=== PATIENT | female | born 1990 ===

== ENCOUNTER 2020-12-21 15:34 | Inpatient (IN) | payer OTHER ==
[~2020-12-21 15:34] MED LIST: Iopamidol-370 76% 500 ML 1 ML ONE
[2020-12-21] MEDS ORDERED: Fentanyl 100 MCG/2 ML VIAL ONE (15:43)
[2020-12-21] MEDS ORDERED: Boostrix 0.5 ML (Tdap) VIAL ONE (15:50)
[2020-12-21 15:56] LABS: Hemoglobin 14.4 g/dL (12.0-16.0); Mean Corpuscular HGB CONC 33.4 g/dL (32.0-36.0); Mean Corpuscular Hemoglobin 32.5 pg (27.0-31.0); Mean Corpuscular Volume 97.2 fL (78.0-98.0); Mean Platelet Volume 9.9 fL (7.4-10.4); Platelet Count 219 thou/uL (130-400); RBC Distribution Width 12.1 % (11.5-14.5); Red Blood Cell (RBC) Count 4.43 mill/uL (4.20-5.40); White Blood Cell (WBC) Count 20.1 thou/uL (4.8-10.8)
[2020-12-21] MEDS ORDERED: Fentanyl CADD 100 ML IV SCH (16:00)
[2020-12-21 16:08] LABS: ALT (SGPT) 32 U/L (8-55); AST (SGOT) 92 U/L (5-34); Albumin 4.3 g/dL (3.5-5.0); Alkaline Phosphatase 102 U/L (40-110); Anion Gap 18 mmol/L (10-20); BUN (Urea Nitrogen) 10 mg/dL (7.0-18.7); Bilirubin, Total 0.3 mg/dL (0.2-1.2); Calc. Creatinine Clearance 0 mL/min (70-130); Calcium 8.6 mg/dL (7.8-10.44); Carbon Dioxide 19 mmol/L (22-29); Chloride 103 mmol/L (98-107); Globulin 2.9 g/dL (2.4-3.5); INR-International Normal Ratio 1.1; Potassium 3.7 mmol/L (3.5-5.1); Protein, Total 7.2 g/dL (6.0-8.3); Prothrombin Time 14.7 sec (12.0-14.7); Sodium 136 mmol/L (136-145)
[2020-12-21 16:08] LABS: Bacteria/HPF 4+ HPF (None Seen); Bilirubin Negative (Negative); Blood, Urine 3+ (Negative); Clarity Turbid (Clear); Glucose, Urine (Dipstick) 150 mg/dL (Negative); Ketone, Urine Negative (Negative); Leukocyte Negative Leu/uL (Negative); Nitrite Negative (Negative); Pregnancy Test - Urine (BHCG) Negative (Negative); Pregu Control Background? CLEAR/WHITE (CLR/WHITE); Pregu Control Bar Appear? YES (CONTROL BAR); Protein, Urine (Dipstick) 300 mg/dL (Neg-Trace); RBC/HPF Greater than 50 HPF (0-3); Specific Gravity 1.012 (1.002-1.036); Specific Gravity, Urine 1.012 (1.002-1.036); Urobilinogen Normal mg/dL (Less than 2); WBC/HPF 21-50 HPF (0-3)
[2020-12-21 16:09] LABS: PTT 37.6 sec (22.9-36.1)
[2020-12-21] MEDS ORDERED: manNITOL 20% 500 ML ONE (16:13)
[2020-12-21] MEDS ORDERED: Mannitol 12.5 GM/50 ML ONE (16:13)
[2020-12-21 16:15] LABS: Band 36 % (5-11); Eosinophils 1 % (0-10); Lymphocytes 19 % (21-51); MDiff Complete? YES; Monocytes 2 % (0-10); Neutrophil 39 % (42-75); Platelet Morphology Comment Appears Adequate; RBC Morphology Normal; Reactive Lymphocytes 3 % (0-10)
[2020-12-21 16:18] LABS: Glucose 235 mg/dL (70-105)
[2020-12-21] MEDS ORDERED: Dextrose 50% Abboject 50 ML SYRINGE SLOW IVP PRN (16:22)
[2020-12-21] MEDS ORDERED: Ondansetron PF 4 MG/2 ML Vial IVP PRN (16:22)
[2020-12-21] MEDS ORDERED: Dextrose 5% in Water 1,000 ML IV PRN (16:22)
[2020-12-21 16:23] LABS: Medtox Reader # READER 4
[2020-12-21 16:24] LABS: Amphetamine Not Detected (NotDetected); Barbiturates Screen Not Detected (NotDetected); Benzodiazepine Screen Not Detected (NotDetected); Cocaine Metabolite Screen Not Detected (NotDetected); Medtox Control Line Valid? VALID (VALID); Methadone Not Detected (NotDetected); Methamphetamine Not Detected (NotDetected); Opiate Screen Not Detected (NotDetected); Oxycodone Screen Not Detected (NotDetected); Phencyclidine (PCP) Not Detected (NotDetected); THC/Cannabinoid Screen Detected (NotDetected); Tricyclic Screen Not Detected (NotDetected)
[2020-12-21 16:26] LABS: Actual Bicarbonate (HCO3a) 19.5 mEq/L (22-28); Analyzer IN Cardio ER; Base Excess (BEa) -7.2 mEq/L (-2.0 to +3.0); Calcium, Ionized (arterial) 1.08 mmol/L (1.12-1.30); Carboxyhemoglobin (COHb) 0.6 gm% (0.0-3.0); Hemoglobin (Hb) 11.6 g/dL (12.0-16.0); O2 Tension (PaO2), arterial 139.8 mmHg (80.0-100.0); pH, Arterial 7.27 (7.35-7.45)
[2020-12-21 16:28] LABS: Puncture Site LRA
[2020-12-21] MEDS ORDERED: niCARdipine 25 MG in Sodium Chloride 0.9% 250 ML 250 ML IVPB PRN (16:29)
[2020-12-21] MEDS ORDERED: Labetalol HCl 100 MG/20 ML VIAL SLOW IVP PRN (16:29)
[2020-12-21] MEDS ORDERED: Ventilator Sedation Protocol 1 EACH FS SCH (16:30)
[2020-12-21] MEDS ORDERED: CEFAZOLIN 1 GM VIAL SLOW IVP SCH (16:30)
[2020-12-21 17:09] LABS: Actual Bicarbonate (HCO3a) 18.7 mEq/L (22-28); Analyzer IN Cardio ER; Base Excess (BEa) -6.5 mEq/L (-2.0 to +3.0); CO2 Tension 35.7 mmHg (35.0-45.0); Calcium, Ionized (arterial) 1.05 mmol/L (1.12-1.30); Hemoglobin (Hb) 11.3 g/dL (12.0-16.0); O2 Tension (PaO2), arterial 76.3 mmHg (80.0-100.0); Potassium - ABG Lab 3.14 mmol/L (3.70-5.30); pH, Arterial 7.34 (7.35-7.45)
[2020-12-21 17:12] LABS: ALV-art Gradient 378.175 mmHg (0-20); Puncture Site Arterial Line
[2020-12-21] MEDS ORDERED: levETIRAcetam in NS 100 ML ONE (17:23)
[2020-12-21] MEDS ORDERED: Morphine 2 MG/ML VIAL SLOW IVP PRN (17:30)
[2020-12-21] MEDS ORDERED: Pharmacy to Dose UNASYN IVPB PRN (17:30)
[2020-12-21] MEDS ORDERED: DISCONTINUE PREVIOUS NARCOTIC PAIN MEDICATIONS AND BENZODIAZEPINES FS SCH (17:30)
[2020-12-21] MEDS ORDERED: Fentanyl BOLUS 250 ML IVPB PRN (17:30)
[2020-12-21] MEDS ORDERED: Propofol BOLUS 1,000 MG/100 ML VIAL IV PRN (17:30)
[2020-12-21] MEDS ORDERED: Norepinephrine 8 MG/0.9% NS 250 ML ONE (17:32)
[2020-12-21] MEDS ORDERED: Ampicillin/Sulbactam 1.5 GM in Sodium Chloride 0.9% 100 ML IVPB SCH (18:00)
[2020-12-21] MEDS ORDERED: Ampicillin/Sulbactam 3 GM in Sodium Chloride 0.9% 100 ML IVPB SCH ×2 (18:00→22:00)
[2020-12-21 18:30] LABS: Sodium 137 mmol/L (136-145)
[2020-12-21] MEDS: Lactated Ringer's 1,000 ML IV SCH (19:00)
[2020-12-21 19:11] LABS: SARS-CoV-2 NAA Rapid Test Not Detected (NotDetected)
[2020-12-21] MEDS: Propofol 1,000 MG/100 ML VIAL IV PRN (20:00)
[2020-12-21] MEDS: Famotidine/PF 20 mg/2ml Vial SLOW IVP SCH (21:01)
[2020-12-21] MEDS: Ampicillin/Sulbactam 3 GM in Sodium Chloride 0.9% 100 ML IVPB SCH (21:38)
[2020-12-21 21:59] LABS: Band 16 % (5-11); Hemoglobin 11.7 g/dL (12.0-16.0); Lymphocytes 24 % (21-51); MDiff Complete? YES; Mean Corpuscular HGB CONC 34.2 g/dL (32.0-36.0); Mean Corpuscular Hemoglobin 32.5 pg (27.0-31.0); Mean Platelet Volume 9.4 fL (7.4-10.4); Monocytes 1 % (0-10); Neutrophil 59 % (42-75); Platelet Count 199 thou/uL (130-400); RBC Distribution Width 12.2 % (11.5-14.5); Red Blood Cell (RBC) Count 3.61 mill/uL (4.20-5.40); White Blood Cell (WBC) Count 23.4 thou/uL (4.8-10.8)
[2020-12-22] MEDS: Lactated Ringer's 1,000 ML IV SCH ×4 (04:02→22:44)
[2020-12-22] MEDS: Ampicillin/Sulbactam 3 GM in Sodium Chloride 0.9% 100 ML IVPB SCH ×4 (04:03→21:53)
[2020-12-22 04:52] LABS: #Basophils 0.1 thou/uL (0.0-0.2); #Lymphocytes 2.2 thou/uL (1.20-3.40); #Monocytes 1.3 thou/uL (0.11-0.59); #Neutrophils 13.2 thou/uL (1.40-6.50); %Basophils 0.4 % (0.0-1.0); %Lymphocytes 12.9 % (21.0-51.0); %Monocytes 7.6 % (0.0-10.0); %Neutrophils 79.1 % (42.0-75.0); Hemoglobin 10.6 g/dL (12.0-16.0); Mean Corpuscular HGB CONC 34.3 g/dL (32.0-36.0); Mean Corpuscular Hemoglobin 32.4 pg (27.0-31.0); Mean Corpuscular Volume 94.3 fL (78.0-98.0); Mean Platelet Volume 9.8 fL (7.4-10.4); Platelet Count 161 thou/uL (130-400); Red Blood Cell (RBC) Count 3.26 mill/uL (4.20-5.40); White Blood Cell (WBC) Count 16.7 thou/uL (4.8-10.8)
[2020-12-22 05:27] LABS: Anion Gap 13 mmol/L (10-20); BUN (Urea Nitrogen) 11 mg/dL (7.0-18.7); Calc. Creatinine Clearance 98 mL/min (70-130); Carbon Dioxide 19 mmol/L (22-29); Chloride 113 mmol/L (98-107); Glucose 106 mg/dL (70-105); Magnesium 1.4 mg/dL (1.6-2.6); Potassium 3.4 mmol/L (3.5-5.1); Sodium 142 mmol/L (136-145)
[2020-12-22 05:41] LABS: Phosphorus 1.9 mg/dL (2.3-4.7)
[2020-12-22] MEDS ORDERED: Potassium Phosphate 30 MMOL in Sodium Chloride 0.9% 250 ML 250 ML IVPB SCH (06:30)
[2020-12-22] MEDS ORDERED: Magnesium 2 GM/50 ML 2 GM in Premix Bag 1 BAG IVPB SCH (06:30)
[2020-12-22] MEDS ORDERED: Fentanyl CADD 100 ML ONE ×2 (07:13→21:50)
[2020-12-22] MEDS: Fentanyl CADD 100 ML IV SCH ×2 (07:15→21:51)
[2020-12-22] MEDS ORDERED: Sodium Phosphate 30 MMOL in Sodium Chloride 0.9% 250 ML 250 ML IVPB SCH (07:30)
[2020-12-22 07:45] LABS: Actual Bicarbonate (HCO3a) 18.9 mEq/L (22-28); Base Excess (BEa) -2.8 mEq/L (-2.0 to +3.0); Hemoglobin (Hb) 12.8 g/dL (12.0-16.0); O2 Tension (PaO2), arterial 138.4 mmHg (80.0-100.0)
[2020-12-22 07:46] LABS: Calcium, Ionized (arterial) 1.08 mmol/L (1.12-1.30); Potassium - ABG Lab 3.51 mmol/L (3.70-5.30)
[2020-12-22 08:04] LABS: CO2 Tension 24.9 mmHg (35.0-45.0)
[2020-12-22 08:05] LABS: ALV-art Gradient 329.575 mmHg (0-20); Puncture Site Arterial Line
[2020-12-22] MEDS: Famotidine/PF 20 mg/2ml Vial SLOW IVP SCH ×2 (09:04→20:53)
[2020-12-22] MEDS: Potassium Chloride 20 MEQ in Premix Bag 1 BAG IVPB SCH ×2 (09:08→13:18)
[2020-12-22] MEDS: Propofol 1,000 MG/100 ML VIAL IV PRN ×2 (09:22→19:51)
[2020-12-22] MEDS ORDERED: Mannitol 12.5 GM/50 ML SLOW IVP PRN (10:12)
[2020-12-22] MEDS ORDERED: levETIRAcetam in NS 500 MG in Premix Bag 1 BAG IVPB SCH (10:15)
[2020-12-22] MEDS: Norepinephrine 8 MG/0.9% NS 250 ML IVPB PRN (11:45)
[2020-12-22] MEDS ORDERED: Sodium Chloride 0.9% 1,000 ML IV SCH (15:00)
[2020-12-22] MEDS ORDERED: Calcium Chloride 13.6 MEQ in Sodium Chloride 0.9% 100 ML IVPB SCH (16:00)
[2020-12-22] MEDS ORDERED: Hydrocortisone Sod Succ/PF 100 mg/2 ml Vial IVP SCH (19:00)
[2020-12-22] MEDS: Lorazepam 2 MG/ML VIAL SLOW IVP PRN (19:33)
[2020-12-22 20:44] LABS: Actual Bicarbonate (HCO3a) 17.9 mEq/L (22-28); Base Excess (BEa) -7.9 mEq/L (-2.0 to +3.0); CO2 Tension 37.7 mmHg (35.0-45.0); Calcium, Ionized (arterial) 1.14 mmol/L (1.12-1.30); Carboxyhemoglobin (COHb) 0.3 gm% (0.0-3.0); Hemoglobin (Hb) 8.4 g/dL (12.0-16.0); O2 Tension (PaO2), arterial 75.2 mmHg (80.0-100.0); Potassium - ABG Lab 3.97 mmol/L (3.70-5.30)
[2020-12-22 20:47] LABS: Puncture Site Arterial Line
[2020-12-22 20:48] LABS: ALV-art Gradient 341.125 mmHg (0-20)
[2020-12-22] MEDS: levETIRAcetam in NS 500 MG in Premix Bag 1 BAG IVPB SCH (20:53)
[2020-12-22 21:46] LABS: Anion Gap 15 mmol/L (10-20); BUN (Urea Nitrogen) 7 mg/dL (7.0-18.7); Calc. Creatinine Clearance 122 mL/min (70-130); Calcium 7.8 mg/dL (7.8-10.44); Carbon Dioxide 16 mmol/L (22-29); Chloride 117 mmol/L (98-107); Glucose 104 mg/dL (70-105); Potassium 4.1 mmol/L (3.5-5.1); Sodium 144 mmol/L (136-145)
[2020-12-23] MEDS: Norepinephrine 8 MG/0.9% NS 250 ML IVPB PRN ×2 (00:45→19:11)
[2020-12-23] MEDS: Hydrocortisone Sod Succ/PF 100 mg/2 ml Vial IVP SCH ×4 (01:25→20:29)
[2020-12-23] MEDS: Propofol 1,000 MG/100 ML VIAL IV PRN ×5 (01:53→22:06)
[2020-12-23] MEDS: Ampicillin/Sulbactam 3 GM in Sodium Chloride 0.9% 100 ML IVPB SCH ×4 (03:07→22:07)
[2020-12-23] MEDS: Lactated Ringer's 1,000 ML IV SCH ×3 (04:36→16:41)
[2020-12-23 04:59] LABS: White Blood Cell (WBC) Count 21.7 thou/uL (4.8-10.8)
[2020-12-23 05:32] LABS: Hemoglobin 8.2 g/dL (12.0-16.0); Mean Corpuscular HGB CONC 33.3 g/dL (32.0-36.0); Mean Corpuscular Hemoglobin 32.4 pg (27.0-31.0); Mean Corpuscular Volume 97.4 fL (78.0-98.0); Mean Platelet Volume 10.7 fL (7.4-10.4); Platelet Count 142 thou/uL (130-400); RBC Distribution Width 12.4 % (11.5-14.5); Red Blood Cell (RBC) Count 2.53 mill/uL (4.20-5.40)
[2020-12-23 05:44] LABS: Anion Gap 17 mmol/L (10-20); BUN (Urea Nitrogen) 6 mg/dL (7.0-18.7); Calc. Creatinine Clearance 116 mL/min (70-130); Carbon Dioxide 14 mmol/L (22-29); Chloride 117 mmol/L (98-107); Glucose 135 mg/dL (70-105); Magnesium 1.9 mg/dL (1.6-2.6); Phosphorus 3.2 mg/dL (2.3-4.7); Potassium 4.2 mmol/L (3.5-5.1); Sodium 144 mmol/L (136-145)
[2020-12-23 06:04] LABS: Band 10 % (5-11); Lymphocytes 3 % (21-51); MDiff Complete? YES; Monocytes 2 % (0-10); Neutrophil 85 % (42-75)
[2020-12-23 06:44] LABS: Base Excess (BEa) -8.3 mEq/L (-2.0 to +3.0); CO2 Tension 34.1 mmHg (35.0-45.0); Calcium, Ionized (arterial) 1.15 mmol/L (1.12-1.30); Carboxyhemoglobin (COHb) 0.3 gm% (0.0-3.0); Hemoglobin (Hb) 8.4 g/dL (12.0-16.0); O2 Tension (PaO2), arterial 93.7 mmHg (80.0-100.0); Potassium - ABG Lab 4.08 mmol/L (3.70-5.30); pH, Arterial 7.32 (7.35-7.45)
[2020-12-23 06:47] LABS: ALV-art Gradient 362.775 mmHg (0-20); Puncture Site Arterial Line
[2020-12-23 09:13] LABS: Actual Bicarbonate (HCO3a) 17.2 mEq/L (22-28); CO2 Tension 33.9 mmHg (35.0-45.0); Calcium, Ionized (arterial) 1.15 mmol/L (1.12-1.30); Carboxyhemoglobin (COHb) 0.3 gm% (0.0-3.0); Hemoglobin (Hb) 8.3 g/dL (12.0-16.0); Potassium - ABG Lab 4.06 mmol/L (3.70-5.30); pH, Arterial 7.32 (7.35-7.45)
[2020-12-23] MEDS ORDERED: Lidocaine 1% (PF) 30 ML VIAL ONE (09:13)
[2020-12-23 09:14] LABS: ALV-art Gradient 379.725 mmHg (0-20); Puncture Site Arterial Line
[2020-12-23] MEDS ORDERED: Calcium Chloride 1 GM/10 ML Abboject SYRINGE IVP SCH (09:15)
[2020-12-23] MEDS: Famotidine/PF 20 mg/2ml Vial SLOW IVP SCH ×2 (09:57→20:31)
[2020-12-23] MEDS: levETIRAcetam in NS 500 MG in Premix Bag 1 BAG IVPB SCH ×2 (09:58→20:30)
[2020-12-23] MEDS ORDERED: Acetaminophen 650 MG/20.3 ML UDCUP PO PRN (10:39)
[2020-12-23] MEDS: Lorazepam 2 MG/ML VIAL SLOW IVP PRN (10:53)
[2020-12-23] MEDS ORDERED: Fentanyl CADD 100 ML ONE (11:53)
[2020-12-23] MEDS: Fentanyl CADD 100 ML IV SCH (11:55)
[2020-12-23] MEDS ORDERED: Acetaminophen 650 MG/20.3 ML UDCUP PO SCH (12:15)
[2020-12-23 16:34] LABS: Hemoglobin 8.3 g/dL (12.0-16.0); Mean Corpuscular HGB CONC 32.7 g/dL (32.0-36.0); Mean Corpuscular Volume 94.7 fL (78.0-98.0); Mean Platelet Volume 9.7 fL (7.4-10.4); Platelet Count 131 thou/uL (130-400); RBC Distribution Width 12.5 % (11.5-14.5); Red Blood Cell (RBC) Count 2.68 mill/uL (4.20-5.40); White Blood Cell (WBC) Count 26.1 thou/uL (4.8-10.8)
[2020-12-23 16:53] LABS: Band 37 % (5-11); Lymphocytes 4 % (21-51); MDiff Complete? YES; Monocytes 7 % (0-10); Neutrophil 52 % (42-75); Platelet Morphology Comment Appears Adequate; Polychromasia SLIGHT = 2-3 cells (100X) (0-2/hpf)
[2020-12-23] MEDS: Acetaminophen 650 MG/20.3 ML UDCUP PO SCH ×2 (18:14→23:29)
[2020-12-24] MEDS ORDERED: Fentanyl CADD 100 ML ONE (00:25)
[2020-12-24] MEDS: Fentanyl CADD 100 ML IV SCH (00:42)
[2020-12-24] MEDS: Hydrocortisone Sod Succ/PF 100 mg/2 ml Vial IVP SCH ×4 (01:34→20:52)
[2020-12-24] MEDS: Propofol 1,000 MG/100 ML VIAL IV PRN ×2 (03:38→11:57)
[2020-12-24] MEDS: Ampicillin/Sulbactam 3 GM in Sodium Chloride 0.9% 100 ML IVPB SCH ×4 (03:39→21:36)
[2020-12-24] MEDS: Acetaminophen 650 MG/20.3 ML UDCUP PO SCH ×3 (05:33→17:42)
[2020-12-24 05:47] LABS: #Lymphocytes 1.2 thou/uL (1.20-3.40); #Monocytes 0.9 thou/uL (0.11-0.59); #Neutrophils 14.6 thou/uL (1.40-6.50); %Basophils 0.1 % (0.0-1.0); %Eosinophils 0.2 % (0.0-10.0); %Monocytes 5.6 % (0.0-10.0); %Neutrophils 87.1 % (42.0-75.0); Hemoglobin 8.4 g/dL (12.0-16.0); Mean Corpuscular HGB CONC 33.8 g/dL (32.0-36.0); Mean Corpuscular Volume 94.5 fL (78.0-98.0); Mean Platelet Volume 9.8 fL (7.4-10.4); Platelet Count 125 thou/uL (130-400); RBC Distribution Width 13.2 % (11.5-14.5); Red Blood Cell (RBC) Count 2.63 mill/uL (4.20-5.40); White Blood Cell (WBC) Count 16.8 thou/uL (4.8-10.8)
[2020-12-24 06:05] LABS: Anion Gap 10 mmol/L (10-20); BUN (Urea Nitrogen) 6 mg/dL (7.0-18.7); Calc. Creatinine Clearance 138 mL/min (70-130); Calcium 8.3 mg/dL (7.8-10.44); Carbon Dioxide 22 mmol/L (22-29); Chloride 119 mmol/L (98-107); Glucose 189 mg/dL (70-105); Magnesium 1.7 mg/dL (1.6-2.6); Phosphorus 1.6 mg/dL (2.3-4.7); Potassium 3.7 mmol/L (3.5-5.1); Sodium 147 mmol/L (136-145)
[2020-12-24] MEDS ORDERED: Magnesium Sulfate 2 GM in Sodium Chloride 0.9% 100 ML IV SCH (06:30)
[2020-12-24] MEDS ORDERED: Potassium Phosphate 30 MMOL, Magnesium Sulfate 2 GM in Sodium Chloride 0.9% 250 ML 250 ML IVPB SCH (06:30)
[2020-12-24] MEDS: levETIRAcetam in NS 500 MG in Premix Bag 1 BAG IVPB SCH ×2 (08:01→20:56)
[2020-12-24] MEDS: Famotidine/PF 20 mg/2ml Vial SLOW IVP SCH ×2 (08:02→20:52)
[2020-12-24] MEDS ORDERED: Iopamidol-370 76% 500 ML 1 ML ONE ×2 (08:54→08:59)
[2020-12-24 09:23] LABS: Lactic Acid 1.1 mmol/L (0.5-2.2)
[2020-12-24 09:29] LABS: INR-International Normal Ratio 1.1; PTT 27.8 sec (22.9-36.1); Prothrombin Time 14.5 sec (12.0-14.7)
[2020-12-24] MEDS: Ferrous Sulfate 325 MG TAB PO SCH ×2 (10:15→20:52)
[2020-12-24] MEDS: Ascorbic Acid 500 mg Chewable Tablet PO SCH ×2 (10:15→20:52)
[2020-12-24] MEDS ORDERED: Lactated Ringer's 1,000 ML IV SCH ×2 (14:00→14:38)
[2020-12-24] MEDS ORDERED: Potassium Chloride 10 MEQ in Dextrose 5%-Lactated Ringers 1,000 ML IV SCH (14:45)
[2020-12-24] MEDS ORDERED: Dextrose 5% in Water 1,000 ML IV PRN (14:46)
[2020-12-24] MEDS ORDERED: Dextrose 50% Abboject 50 ML SYRINGE SLOW IVP PRN (14:46)
[2020-12-24] MEDS: Metoclopramide HCl 10 MG/2 ML VIAL IVP SCH ×2 (16:34→21:37)
[2020-12-24 17:04] LABS: Anion Gap 11 mmol/L (10-20); BUN (Urea Nitrogen) 6 mg/dL (7.0-18.7); Calc. Creatinine Clearance 175 mL/min (70-130); Calcium 7.4 mg/dL (7.8-10.44); Carbon Dioxide 19 mmol/L (22-29); Chloride 120 mmol/L (98-107); Glucose 124 mg/dL (70-105); Magnesium 2.2 mg/dL (1.6-2.6); Phosphorus 2.8 mg/dL (2.3-4.7); Potassium 3.7 mmol/L (3.5-5.1); Sodium 146 mmol/L (136-145)
[2020-12-24] MEDS: Lactated Ringer's 1,000 ML IV SCH (17:50)
[2020-12-24] MEDS ORDERED: Aspirin 325 MG TAB PER TUBE SCH (22:00)
[2020-12-25] MEDS: Acetaminophen 650 MG/20.3 ML UDCUP PO SCH ×5 (00:14→23:22)
[2020-12-25] MEDS: Hydrocortisone Sod Succ/PF 100 mg/2 ml Vial IVP SCH ×4 (02:00→20:53)
[2020-12-25] MEDS: Lactated Ringer's 1,000 ML IV SCH (02:00)
[2020-12-25 04:12] LABS: #Lymphocytes 1.2 thou/uL (1.20-3.40); #Monocytes 0.9 thou/uL (0.11-0.59); #Neutrophils 12.5 thou/uL (1.40-6.50); %Eosinophils 0.3 % (0.0-10.0); %Lymphocytes 8.2 % (21.0-51.0); %Neutrophils 85.5 % (42.0-75.0); Hemoglobin 8.2 g/dL (12.0-16.0); Mean Corpuscular HGB CONC 34.2 g/dL (32.0-36.0); Mean Corpuscular Hemoglobin 32.6 pg (27.0-31.0); Mean Corpuscular Volume 95.2 fL (78.0-98.0); Mean Platelet Volume 9.6 fL (7.4-10.4); Platelet Count 143 thou/uL (130-400); RBC Distribution Width 13.3 % (11.5-14.5); Red Blood Cell (RBC) Count 2.51 mill/uL (4.20-5.40); White Blood Cell (WBC) Count 14.6 thou/uL (4.8-10.8)
[2020-12-25] MEDS: Ampicillin/Sulbactam 3 GM in Sodium Chloride 0.9% 100 ML IVPB SCH ×4 (04:41→21:04)
[2020-12-25 04:56] LABS: Anion Gap 12 mmol/L (10-20); BUN (Urea Nitrogen) 6 mg/dL (7.0-18.7); Calc. Creatinine Clearance 162 mL/min (70-130); Calcium 8.1 mg/dL (7.8-10.44); Carbon Dioxide 22 mmol/L (22-29); Chloride 117 mmol/L (98-107); Glucose 139 mg/dL (70-105); Magnesium 2.1 mg/dL (1.6-2.6); Phosphorus 2.2 mg/dL (2.3-4.7); Potassium 3.6 mmol/L (3.5-5.1); Sodium 147 mmol/L (136-145)
[2020-12-25] MEDS: Metoclopramide HCl 10 MG/2 ML VIAL IVP SCH ×3 (05:43→21:02)
[2020-12-25] MEDS ORDERED: Potassium Phosphate 30 MMOL in Sodium Chloride 0.9% 500 ML IVPB SCH (07:30)
[2020-12-25] MEDS ORDERED: Dextrose 5%-Lactated Ringers 1,000 ML IV SCH (07:32)
[2020-12-25] MEDS ORDERED: Aspirin 325 MG TAB PER TUBE SCH (08:00)
[2020-12-25] MEDS: Propofol 1,000 MG/100 ML VIAL IV PRN ×2 (08:00→21:00)
[2020-12-25] MEDS ORDERED: Potassium Phosphate 30 MMOL in Sodium Chloride 0.9% 250 ML 250 ML IVPB SCH (08:15)
[2020-12-25] MEDS ORDERED: Fentanyl CADD 100 ML ONE (08:46)
[2020-12-25] MEDS: Fentanyl CADD 100 ML IV SCH (08:53)
[2020-12-25] MEDS: Dextrose 5%-Lactated Ringers 1,000 ML IV SCH ×2 (09:09→12:16)
[2020-12-25] MEDS: Saccharomyces boulardii 250 MG CAP PO SCH (09:28)
[2020-12-25] MEDS: Ascorbic Acid 500 mg Chewable Tablet PO SCH ×2 (09:28→20:53)
[2020-12-25] MEDS: Famotidine/PF 20 mg/2ml Vial SLOW IVP SCH ×2 (09:28→20:54)
[2020-12-25] MEDS: Amantadine HCl 100 mg Capsule PO SCH (09:29)
[2020-12-25] MEDS: Polyethylene Glycol 3350 17 GM Packet PO SCH (09:29)
[2020-12-25] MEDS: Ferrous Sulfate 325 MG TAB PO SCH ×2 (09:29→20:52)
[2020-12-25] MEDS: levETIRAcetam in NS 500 MG in Premix Bag 1 BAG IVPB SCH ×2 (09:39→21:38)
[2020-12-25] MEDS: Levothyroxine Sodium 400 MCG, Admixture Fee 1 EACH in Sodium Chloride 0.9% 100 ML IVPB SCH (09:47)
[2020-12-25] MEDS ORDERED: Levothyroxine 100 MCG SDV SLOW IVP SCH (10:30)
[2020-12-25] MEDS: D5 1/2 NS w/10 mEq KCl 1,000 ML/1,000 ML BAG IV SCH ×2 (12:14→21:39)
[2020-12-25] MEDS: Insulin Regular 300 UNITS/3 ML VIAL SC PRN ×2 (16:37→23:21)
[2020-12-26] MEDS: Hydrocortisone Sod Succ/PF 100 mg/2 ml Vial IVP SCH ×4 (01:38→20:27)
[2020-12-26 04:11] LABS: Lactic Acid 1.8 mmol/L (0.5-2.2)
[2020-12-26 04:19] LABS: Anion Gap 11 mmol/L (10-20); BUN (Urea Nitrogen) 8 mg/dL (7.0-18.7); Calc. Creatinine Clearance 187 mL/min (70-130); Calcium 7.9 mg/dL (7.8-10.44); Carbon Dioxide 22 mmol/L (22-29); Chloride 118 mmol/L (98-107); Glucose 145 mg/dL (70-105); Magnesium 2.2 mg/dL (1.6-2.6); Phosphorus 3.1 mg/dL (2.3-4.7); Potassium 3.9 mmol/L (3.5-5.1); Sodium 147 mmol/L (136-145)
[2020-12-26 04:23] LABS: Band 21 % (5-11); Hemoglobin 7.9 g/dL (12.0-16.0); Lymphocytes 17 % (21-51); MDiff Complete? YES; Mean Corpuscular HGB CONC 34.3 g/dL (32.0-36.0); Mean Corpuscular Hemoglobin 32.6 pg (27.0-31.0); Mean Corpuscular Volume 95.1 fL (78.0-98.0); Mean Platelet Volume 9.3 fL (7.4-10.4); Monocytes 4 % (0-10); Neutrophil 58 % (42-75); Platelet Count 199 thou/uL (130-400); RBC Distribution Width 13.3 % (11.5-14.5); Red Blood Cell (RBC) Count 2.43 mill/uL (4.20-5.40); White Blood Cell (WBC) Count 13.6 thou/uL (4.8-10.8)
[2020-12-26] MEDS: Ampicillin/Sulbactam 3 GM in Sodium Chloride 0.9% 100 ML IVPB SCH ×4 (04:45→21:39)
[2020-12-26] MEDS: Levothyroxine Sodium 400 MCG, Admixture Fee 1 EACH in Sodium Chloride 0.9% 100 ML IVPB SCH (04:45)
[2020-12-26] MEDS: Metoclopramide HCl 10 MG/2 ML VIAL IVP SCH ×3 (05:13→21:39)
[2020-12-26] MEDS: Acetaminophen 650 MG/20.3 ML UDCUP PO SCH ×4 (05:13→23:20)
[2020-12-26] MEDS: Saccharomyces boulardii 250 MG CAP PO SCH (09:52)
[2020-12-26] MEDS: Ascorbic Acid 500 mg Chewable Tablet PO SCH ×2 (09:52→20:27)
[2020-12-26] MEDS: Famotidine 20 MG TAB PER TUBE SCH ×2 (09:52→20:27)
[2020-12-26] MEDS: Ferrous Sulfate 325 MG TAB PO SCH ×2 (09:53→20:27)
[2020-12-26] MEDS: Amantadine HCl 100 mg Capsule PO SCH (09:53)
[2020-12-26] MEDS: Polyethylene Glycol 3350 17 GM Packet PO SCH (09:53)
[2020-12-26] MEDS: levETIRAcetam in NS 500 MG in Premix Bag 1 BAG IVPB SCH ×2 (10:00→20:26)
[2020-12-26] MEDS: D5 1/2 NS w/10 mEq KCl 1,000 ML/1,000 ML BAG IV SCH ×3 (14:29→21:26)
[2020-12-26] MEDS: Propofol 1,000 MG/100 ML VIAL IV PRN ×2 (15:12→21:27)
[2020-12-26] MEDS ORDERED: Fentanyl CADD 100 ML ONE (21:43)
[2020-12-26] MEDS: Fentanyl CADD 100 ML IV SCH (21:45)
[2020-12-27] MEDS: D5 1/2 NS w/10 mEq KCl 1,000 ML/1,000 ML BAG IV SCH ×3 (01:23→21:23)
[2020-12-27] MEDS: Ampicillin/Sulbactam 3 GM in Sodium Chloride 0.9% 100 ML IVPB SCH ×4 (03:16→21:21)
[2020-12-27] MEDS: Hydrocortisone Sod Succ/PF 100 mg/2 ml Vial IVP SCH ×4 (03:16→20:44)
[2020-12-27] MEDS: Metoclopramide HCl 10 MG/2 ML VIAL IVP SCH ×4 (05:43→23:59)
[2020-12-27] MEDS: Acetaminophen 650 MG/20.3 ML UDCUP PO SCH ×4 (05:43→23:59)
[2020-12-27 06:39] LABS: #Basophils 0.1 thou/uL (0.0-0.2); #Eosinphils 0.1 thou/uL (0.0-0.7); #Lymphocytes 1.8 thou/uL (1.20-3.40); #Neutrophils 10.5 thou/uL (1.40-6.50); %Basophils 0.6 % (0.0-1.0); %Eosinophils 0.9 % (0.0-10.0); %Lymphocytes 13.2 % (21.0-51.0); %Monocytes 7.2 % (0.0-10.0); %Neutrophils 78.2 % (42.0-75.0); Hemoglobin 8.5 g/dL (12.0-16.0); Mean Corpuscular HGB CONC 34.7 g/dL (32.0-36.0); Mean Corpuscular Hemoglobin 33.5 pg (27.0-31.0); Mean Corpuscular Volume 96.5 fL (78.0-98.0); Mean Platelet Volume 8.4 fL (7.4-10.4); Platelet Count 271 thou/uL (130-400); RBC Distribution Width 13.2 % (11.5-14.5); Red Blood Cell (RBC) Count 2.54 mill/uL (4.20-5.40); White Blood Cell (WBC) Count 13.4 thou/uL (4.8-10.8)
[2020-12-27 06:53] LABS: Anion Gap 8 mmol/L (10-20); BUN (Urea Nitrogen) 7 mg/dL (7.0-18.7); Calc. Creatinine Clearance 208 mL/min (70-130); Calcium 7.8 mg/dL (7.8-10.44); Carbon Dioxide 26 mmol/L (22-29); Chloride 116 mmol/L (98-107); Glucose 127 mg/dL (70-105); Magnesium 2.3 mg/dL (1.6-2.6); Phosphorus 2.5 mg/dL (2.3-4.7); Potassium 3.4 mmol/L (3.5-5.1); Sodium 147 mmol/L (136-145)
[2020-12-27] MEDS: Lorazepam 2 MG/ML VIAL SLOW IVP PRN ×2 (08:17→22:02)
[2020-12-27] MEDS: Propofol 1,000 MG/100 ML VIAL IV PRN (08:18)
[2020-12-27] MEDS: levETIRAcetam in NS 500 MG in Premix Bag 1 BAG IVPB SCH ×2 (08:18→20:44)
[2020-12-27] MEDS ORDERED: Potassium Chloride 20 MEQ in Premix Bag 1 BAG IVPB SCH (08:30)
[2020-12-27] MEDS: Polyethylene Glycol 3350 17 GM Packet PO SCH (08:34)
[2020-12-27] MEDS: Amantadine HCl 100 mg Capsule PO SCH (08:38)
[2020-12-27] MEDS: Famotidine 20 MG TAB PER TUBE SCH (08:39)
[2020-12-27] MEDS: Ferrous Sulfate 325 MG TAB PO SCH ×2 (08:39→20:44)
[2020-12-27] MEDS: Ascorbic Acid 500 mg Chewable Tablet PO SCH ×2 (08:39→20:44)
[2020-12-27] MEDS: Saccharomyces boulardii 250 MG CAP PO SCH (08:39)
[2020-12-27] MEDS: Levothyroxine Sodium 400 MCG, Admixture Fee 1 EACH in Sodium Chloride 0.9% 100 ML IVPB SCH (20:44)
[2020-12-27] MEDS: Pantoprazole 40 MG VIAL IVP SCH (20:44)
[2020-12-27] MEDS ORDERED: Fentanyl CADD 100 ML ONE (23:54)
[2020-12-28] MEDS: Fentanyl CADD 100 ML IV SCH ×2 (00:01→16:47)
[2020-12-28] MEDS: Hydrocortisone Sod Succ/PF 100 mg/2 ml Vial IVP SCH ×4 (02:52→20:00)
[2020-12-28] MEDS: Ampicillin/Sulbactam 3 GM in Sodium Chloride 0.9% 100 ML IVPB SCH ×4 (04:29→21:16)
[2020-12-28] MEDS: Acetaminophen 650 MG/20.3 ML UDCUP PO SCH ×4 (05:56→23:58)
[2020-12-28] MEDS: Metoclopramide HCl 10 MG/2 ML VIAL IVP SCH ×4 (05:57→23:59)
[2020-12-28] MEDS: D5 1/2 NS w/10 mEq KCl 1,000 ML/1,000 ML BAG IV SCH ×2 (08:05→17:20)
[2020-12-28 08:13] LABS: #Basophils 0.1 thou/uL (0.0-0.2); #Eosinphils 0.1 thou/uL (0.0-0.7); #Lymphocytes 1.9 thou/uL (1.20-3.40); #Monocytes 0.8 thou/uL (0.11-0.59); #Neutrophils 12.6 thou/uL (1.40-6.50); %Basophils 0.3 % (0.0-1.0); %Eosinophils 0.3 % (0.0-10.0); %Lymphocytes 12.1 % (21.0-51.0); %Monocytes 5.3 % (0.0-10.0); %Neutrophils 81.9 % (42.0-75.0); Hemoglobin 8.3 g/dL (12.0-16.0); Mean Corpuscular HGB CONC 32.9 g/dL (32.0-36.0); Mean Corpuscular Hemoglobin 31.6 pg (27.0-31.0); Mean Corpuscular Volume 95.9 fL (78.0-98.0); Mean Platelet Volume 7.9 fL (7.4-10.4); Platelet Count 327 thou/uL (130-400); RBC Distribution Width 13.7 % (11.5-14.5); Red Blood Cell (RBC) Count 2.63 mill/uL (4.20-5.40); White Blood Cell (WBC) Count 15.4 thou/uL (4.8-10.8)
[2020-12-28] MEDS: levETIRAcetam in NS 500 MG in Premix Bag 1 BAG IVPB SCH ×2 (08:34→20:00)
[2020-12-28 08:35] LABS: Anion Gap 12 mmol/L (10-20); BUN (Urea Nitrogen) 9 mg/dL (7.0-18.7); Calc. Creatinine Clearance 191 mL/min (70-130); Calcium 7.7 mg/dL (7.8-10.44); Carbon Dioxide 24 mmol/L (22-29); Chloride 114 mmol/L (98-107); Glucose 105 mg/dL (70-105); Magnesium 2.3 mg/dL (1.6-2.6); Potassium 3.3 mmol/L (3.5-5.1); Sodium 147 mmol/L (136-145)
[2020-12-28] MEDS: Ascorbic Acid 500 mg Chewable Tablet PO SCH ×2 (08:35→20:00)
[2020-12-28] MEDS: Polyethylene Glycol 3350 17 GM Packet PO SCH (08:35)
[2020-12-28] MEDS: Saccharomyces boulardii 250 MG CAP PO SCH (08:35)
[2020-12-28] MEDS: Ferrous Sulfate 325 MG TAB PO SCH ×2 (08:35→20:00)
[2020-12-28] MEDS: Pantoprazole 40 MG VIAL IVP SCH ×2 (08:35→20:00)
[2020-12-28] MEDS ORDERED: Potassium Chloride 40 MEQ in Premix Bag 1 BAG IVPB SCH (08:45)
[2020-12-28] MEDS ORDERED: Furosemide 20 MG/2 ML VIAL SLOW IVP SCH (09:45)
[2020-12-28] MEDS: Amantadine HCl 100 mg Capsule PO SCH (09:55)
[2020-12-28] MEDS ORDERED: Fentanyl CADD 100 ML ONE (16:42)
[2020-12-28] MEDS: Levothyroxine Sodium 400 MCG, Admixture Fee 1 EACH in Sodium Chloride 0.9% 100 ML IVPB SCH (17:20)
[2020-12-29] MEDS: Hydrocortisone Sod Succ/PF 100 mg/2 ml Vial IVP SCH ×4 (02:20→19:57)
[2020-12-29] MEDS: Lorazepam 2 MG/ML VIAL SLOW IVP PRN ×2 (02:49→20:11)
[2020-12-29 03:25] LABS: Actual Bicarbonate (HCO3a) 26.3 mEq/L (22-28); Base Excess (BEa) 2.4 mEq/L (-2.0 to +3.0); CO2 Tension 37.8 mmHg (35.0-45.0); Carboxyhemoglobin (COHb) 0.6 gm% (0.0-3.0); Hemoglobin (Hb) 8.4 g/dL (12.0-16.0); Potassium - ABG Lab 3.39 mmol/L (3.70-5.30); pH, Arterial 7.46 (7.35-7.45)
[2020-12-29 03:26] LABS: Puncture Site RRA
[2020-12-29] MEDS: D5 1/2 NS w/10 mEq KCl 1,000 ML/1,000 ML BAG IV SCH ×3 (03:48→23:18)
[2020-12-29 04:11] LABS: #Eosinphils 0.1 thou/uL (0.0-0.7); #Lymphocytes 1.9 thou/uL (1.20-3.40); #Monocytes 0.8 thou/uL (0.11-0.59); #Neutrophils 10.2 thou/uL (1.40-6.50); %Basophils 0.1 % (0.0-1.0); %Eosinophils 0.5 % (0.0-10.0); %Lymphocytes 14.5 % (21.0-51.0); %Monocytes 6.2 % (0.0-10.0); %Neutrophils 78.7 % (42.0-75.0); Hemoglobin 7.8 g/dL (12.0-16.0); Mean Corpuscular HGB CONC 33.5 g/dL (32.0-36.0); Mean Corpuscular Hemoglobin 32.5 pg (27.0-31.0); Platelet Count 345 thou/uL (130-400); Red Blood Cell (RBC) Count 2.41 mill/uL (4.20-5.40)
[2020-12-29] MEDS: Ampicillin/Sulbactam 3 GM in Sodium Chloride 0.9% 100 ML IVPB SCH ×4 (04:16→21:18)
[2020-12-29 04:25] LABS: INR-International Normal Ratio 1.1; PTT 30.7 sec (22.9-36.1); Prothrombin Time 14.4 sec (12.0-14.7)
[2020-12-29 04:31] LABS: Anion Gap 9 mmol/L (10-20); BUN (Urea Nitrogen) 9 mg/dL (7.0-18.7); Calc. Creatinine Clearance 188 mL/min (70-130); Calcium 7.8 mg/dL (7.8-10.44); Carbon Dioxide 28 mmol/L (22-29); Chloride 113 mmol/L (98-107); Glucose 108 mg/dL (70-105); Magnesium 2.2 mg/dL (1.6-2.6); Phosphorus 3.9 mg/dL (2.3-4.7); Potassium 3.3 mmol/L (3.5-5.1); Sodium 147 mmol/L (136-145)
[2020-12-29 04:33] LABS: CKMB 2.8 ng/mL (0-6.6); Troponin I 0.062 ng/mL (< 0.028)
[2020-12-29 04:37] LABS: Lactic Acid 1.2 mmol/L (0.5-2.2)
[2020-12-29 04:41] LABS: Bilirubin Negative (Negative); Blood, Urine Negative (Negative); Glucose, Urine (Dipstick) Negative (Negative); Ketone, Urine Negative (Negative); Leukocyte Negative (Negative); Nitrite Negative (Negative); Protein, Urine (Dipstick) Negative (Neg-Trace); Specific Gravity, Urine 1.025 (1.005-1.030); Urobilinogen 0.2 mg/dL (Less than 2)
[2020-12-29 04:42] LABS: Bacteria/HPF None Seen HPF (None Seen); Clarity Clear (Clear); Mucous/LPF Rare LPF (<2+); RBC/HPF 0-3 HPF (0-3); Squamous Epithelial 0-3 HPF (0-3); WBC/HPF 0-3 HPF (0-3)
[2020-12-29] MEDS: Acetaminophen 650 MG/20.3 ML UDCUP PO SCH ×4 (06:08→23:11)
[2020-12-29] MEDS: Metoclopramide HCl 10 MG/2 ML VIAL IVP SCH ×4 (06:08→23:11)
[2020-12-29] MEDS: Fentanyl CADD 100 ML IV SCH ×2 (08:24→21:58)
[2020-12-29 09:03] LABS: ALT (SGPT) 23 U/L (8-55); AST (SGOT) 42 U/L (5-34); Albumin 2.6 g/dL (3.5-5.0); Alkaline Phosphatase 63 U/L (40-110); Anion Gap 12 mmol/L (10-20); BUN (Urea Nitrogen) 9 mg/dL (7.0-18.7); Bilirubin, Direct 0.2 mg/dL (0.1-0.3); Bilirubin, Total 0.4 mg/dL (0.2-1.2); CK (CPK) 892 U/L (29-168); Calc. Creatinine Clearance 192 mL/min (70-130); Calcium 7.7 mg/dL (7.8-10.44); Carbon Dioxide 26 mmol/L (22-29); Chloride 112 mmol/L (98-107); Globulin 2.3 g/dL (2.4-3.5); Glucose 108 mg/dL (70-105); Lipase 69 U/L (8-78); Magnesium 2.2 mg/dL (1.6-2.6); Phosphorus 3.7 mg/dL (2.3-4.7); Potassium 3.3 mmol/L (3.5-5.1); Protein, Total 4.9 g/dL (6.0-8.3); Sodium 147 mmol/L (136-145)
[2020-12-29 09:40] LABS: #Eosinphils 0.1 thou/uL (0.0-0.7); #Lymphocytes 2.2 thou/uL (1.20-3.40); #Monocytes 0.9 thou/uL (0.11-0.59); #Neutrophils 10.3 thou/uL (1.40-6.50); %Basophils 0.3 % (0.0-1.0); %Eosinophils 0.6 % (0.0-10.0); %Lymphocytes 16.4 % (21.0-51.0); %Monocytes 6.6 % (0.0-10.0); %Neutrophils 76.1 % (42.0-75.0); Hemoglobin 8.1 g/dL (12.0-16.0); Mean Corpuscular HGB CONC 33.7 g/dL (32.0-36.0); Mean Corpuscular Hemoglobin 32.9 pg (27.0-31.0); Mean Corpuscular Volume 97.9 fL (78.0-98.0); Mean Platelet Volume 7.8 fL (7.4-10.4); Platelet Count 359 thou/uL (130-400); RBC Distribution Width 13.7 % (11.5-14.5); Red Blood Cell (RBC) Count 2.47 mill/uL (4.20-5.40); White Blood Cell (WBC) Count 13.6 thou/uL (4.8-10.8)
[2020-12-29 09:49] LABS: INR-International Normal Ratio 1.1; PTT 29.1 sec (22.9-36.1); Prothrombin Time 14.2 sec (12.0-14.7)
[2020-12-29 09:51] LABS: Lactic Acid 1.1 mmol/L (0.5-2.2)
[2020-12-29 09:59] LABS: ALT (SGPT) 21 U/L (8-55); AST (SGOT) 40 U/L (5-34); Albumin 2.6 g/dL (3.5-5.0); Alkaline Phosphatase 62 U/L (40-110); Anion Gap 8 mmol/L (10-20); BUN (Urea Nitrogen) 8 mg/dL (7.0-18.7); Bilirubin, Direct 0.2 mg/dL (0.1-0.3); Bilirubin, Total 0.4 mg/dL (0.2-1.2); CK (CPK) 794 U/L (29-168); Calc. Creatinine Clearance 192 mL/min (70-130); Calcium 7.9 mg/dL (7.8-10.44); Carbon Dioxide 30 mmol/L (22-29); Chloride 112 mmol/L (98-107); Globulin 2.3 g/dL (2.4-3.5); Glucose 108 mg/dL (70-105); Lipase 70 U/L (8-78); Magnesium 2.2 mg/dL (1.6-2.6); Phosphorus 3.4 mg/dL (2.3-4.7); Potassium 3.4 mmol/L (3.5-5.1); Protein, Total 4.9 g/dL (6.0-8.3); Sodium 147 mmol/L (136-145)
[2020-12-29 10:00] LABS: CKMB 2.8 ng/mL (0-6.6); Troponin I 0.068 ng/mL (< 0.028)
[2020-12-29] MEDS: levETIRAcetam in NS 500 MG in Premix Bag 1 BAG IVPB SCH ×2 (10:17→21:23)
[2020-12-29] MEDS: Saccharomyces boulardii 250 MG CAP PO SCH (10:18)
[2020-12-29] MEDS: Polyethylene Glycol 3350 17 GM Packet PO SCH (10:19)
[2020-12-29] MEDS: Amantadine HCl 100 mg Capsule PO SCH (10:19)
[2020-12-29] MEDS: Ferrous Sulfate 325 MG TAB PO SCH ×2 (10:19→19:57)
[2020-12-29] MEDS: Ascorbic Acid 500 mg Chewable Tablet PO SCH ×2 (10:19→19:57)
[2020-12-29] MEDS: Pantoprazole 40 MG VIAL IVP SCH ×2 (10:24→19:57)
[2020-12-29] MEDS ORDERED: Furosemide 40 MG/4 ML VIAL ONE (13:48)
[2020-12-29] MEDS ORDERED: Furosemide 20 MG/2 ML VIAL SLOW IVP SCH (14:45)
[2020-12-29] MEDS ORDERED: Vecuronium 10 MG VIAL IVP SCH (14:45)
[2020-12-29] MEDS ORDERED: Vecuronium 10 MG VIAL ONE (14:46)
[2020-12-29] MEDS ORDERED: Sterile Water 10 ML ONE (14:46)
[2020-12-29 14:59] LABS: #Basophils 0.1 thou/uL (0.0-0.2); #Eosinphils 0.1 thou/uL (0.0-0.7); #Lymphocytes 2.2 thou/uL (1.20-3.40); #Monocytes 0.9 thou/uL (0.11-0.59); #Neutrophils 11.7 thou/uL (1.40-6.50); %Basophils 0.4 % (0.0-1.0); %Lymphocytes 14.8 % (21.0-51.0); %Monocytes 5.9 % (0.0-10.0); %Neutrophils 77.9 % (42.0-75.0); Hemoglobin 8.8 g/dL (12.0-16.0); Mean Corpuscular HGB CONC 33.2 g/dL (32.0-36.0); Mean Corpuscular Hemoglobin 31.9 pg (27.0-31.0); Mean Platelet Volume 7.8 fL (7.4-10.4); Platelet Count 376 thou/uL (130-400); RBC Distribution Width 14.2 % (11.5-14.5); Red Blood Cell (RBC) Count 2.76 mill/uL (4.20-5.40)
[2020-12-29 15:07] LABS: PTT 28.3 sec (22.9-36.1); Prothrombin Time 13.4 sec (12.0-14.7)
[2020-12-29 15:16] LABS: Lactic Acid 1.3 mmol/L (0.5-2.2)
[2020-12-29 15:23] LABS: ALT (SGPT) 24 U/L (8-55); AST (SGOT) 43 U/L (5-34); Alkaline Phosphatase 70 U/L (40-110); Anion Gap 14 mmol/L (10-20); BUN (Urea Nitrogen) 8 mg/dL (7.0-18.7); Bilirubin, Direct 0.2 mg/dL (0.1-0.3); Bilirubin, Total 0.5 mg/dL (0.2-1.2); CK (CPK) 812 U/L (29-168); Calc. Creatinine Clearance 186 mL/min (70-130); Calcium 8.1 mg/dL (7.8-10.44); Carbon Dioxide 28 mmol/L (22-29); Chloride 110 mmol/L (98-107); Globulin 2.6 g/dL (2.4-3.5); Glucose 110 mg/dL (70-105); Lipase 74 U/L (8-78); Magnesium 2.2 mg/dL (1.6-2.6); Phosphorus 3.3 mg/dL (2.3-4.7); Potassium 3.5 mmol/L (3.5-5.1); Protein, Total 5.6 g/dL (6.0-8.3); Sodium 148 mmol/L (136-145)
[2020-12-29 15:27] LABS: CKMB 2.7 ng/mL (0-6.6); Troponin I 0.054 ng/mL (< 0.028)
[2020-12-29] MEDS: Levothyroxine Sodium 400 MCG, Admixture Fee 1 EACH in Sodium Chloride 0.9% 100 ML IVPB SCH (15:35)
[2020-12-29 16:47] LABS: Actual Bicarbonate (HCO3a) 29.8 mEq/L (22-28); Base Excess (BEa) 5.7 mEq/L (-2.0 to +3.0); CO2 Tension 41.3 mmHg (35.0-45.0); Carboxyhemoglobin (COHb) 0.1 gm% (0.0-3.0); Hemoglobin (Hb) 8.4 g/dL (12.0-16.0); O2 Tension (PaO2), arterial 315.4 mmHg (80.0-100.0); pH, Arterial 7.48 (7.35-7.45)
[2020-12-29 16:48] LABS: Calcium, Ionized (arterial) 1.09 mmol/L (1.12-1.30); Potassium - ABG Lab 3.34 mmol/L (3.70-5.30)
[2020-12-29 16:49] LABS: ALV-art Gradient 345.975 mmHg (0-20); Puncture Site Arterial Line
[2020-12-29] MEDS ORDERED: Fentanyl CADD 100 ML ONE (21:17)
[2020-12-29 21:36] LABS: Hemoglobin A1c 5.1 % (4.0-6.0)
[2020-12-29 21:44] LABS: INR-International Normal Ratio 1.1
[2020-12-29 21:47] LABS: Lactic Acid 1.6 mmol/L (0.5-2.2)
[2020-12-29 21:50] LABS: ALT (SGPT) 21 U/L (8-55); AST (SGOT) 38 U/L (5-34); Albumin 2.6 g/dL (3.5-5.0); Alkaline Phosphatase 63 U/L (40-110); Anion Gap 12 mmol/L (10-20); BUN (Urea Nitrogen) 8 mg/dL (7.0-18.7); Bilirubin, Direct 0.2 mg/dL (0.1-0.3); Bilirubin, Total 0.4 mg/dL (0.2-1.2); CK (CPK) 640 U/L (29-168); Calc. Creatinine Clearance 183 mL/min (70-130); Calcium 7.8 mg/dL (7.8-10.44); Carbon Dioxide 28 mmol/L (22-29); Chloride 111 mmol/L (98-107); Globulin 2.2 g/dL (2.4-3.5); Glucose 121 mg/dL (70-105); Lipase 61 U/L (8-78); Phosphorus 2.9 mg/dL (2.3-4.7); Potassium 3.5 mmol/L (3.5-5.1); Protein, Total 4.8 g/dL (6.0-8.3); Sodium 147 mmol/L (136-145)
[2020-12-29 21:54] LABS: CKMB 2.6 ng/mL (0-6.6)
[2020-12-29 22:26] LABS: Hemoglobin 7.8 g/dL (12.0-16.0); Mean Corpuscular HGB CONC 33.2 g/dL (32.0-36.0); Mean Corpuscular Hemoglobin 31.9 pg (27.0-31.0); Mean Platelet Volume 7.9 fL (7.4-10.4); Platelet Count 358 thou/uL (130-400); RBC Distribution Width 13.8 % (11.5-14.5); Red Blood Cell (RBC) Count 2.45 mill/uL (4.20-5.40); White Blood Cell (WBC) Count 17.4 thou/uL (4.8-10.8)
[2020-12-29 22:39] LABS: Bilirubin Negative (Negative); Blood, Urine Negative (Negative); Glucose, Urine (Dipstick) Negative (Negative); Ketone, Urine Negative (Negative); Leukocyte Negative (Negative); Nitrite Negative (Negative); Protein, Urine (Dipstick) Negative (Neg-Trace); Specific Gravity, Urine 1.015 (1.005-1.030)
[2020-12-29 22:40] LABS: Clarity Clear (Clear)
[2020-12-29 22:43] LABS: Eosinophils 1 % (0-10); Lymphocytes 4 % (21-51); MDiff Complete? YES; Monocytes 3 % (0-10); Neutrophil 92 % (42-75); Platelet Morphology Comment Appears Adequate
[2020-12-29 23:03] LABS: Actual Bicarbonate (HCO3a) 28.5 mEq/L (22-28); CO2 Tension 34.5 mmHg (35.0-45.0); Calcium, Ionized (arterial) 1.07 mmol/L (1.12-1.30); O2 Tension (PaO2), arterial 449.4 mmHg (80.0-100.0); Potassium - ABG Lab 3.29 mmol/L (3.70-5.30); pH, Arterial 7.54 (7.35-7.45)
[2020-12-29 23:07] LABS: Puncture Site Arterial Line
[2020-12-29 23:08] LABS: ALV-art Gradient 220.475 mmHg (0-20)
[2020-12-30] MEDS: Lorazepam 2 MG/ML VIAL SLOW IVP PRN ×6 (00:40→22:57)
[2020-12-30] MEDS: Hydrocortisone Sod Succ/PF 100 mg/2 ml Vial IVP SCH ×4 (00:55→20:00)
[2020-12-30 03:21] LABS: #Basophils 0.1 thou/uL (0.0-0.2); #Eosinphils 0.1 thou/uL (0.0-0.7); #Lymphocytes 1.8 thou/uL (1.20-3.40); #Monocytes 0.7 thou/uL (0.11-0.59); #Neutrophils 10.3 thou/uL (1.40-6.50); %Basophils 0.4 % (0.0-1.0); %Eosinophils 0.7 % (0.0-10.0); %Lymphocytes 13.6 % (21.0-51.0); %Monocytes 5.4 % (0.0-10.0); %Neutrophils 79.9 % (42.0-75.0); Hemoglobin 7.5 g/dL (12.0-16.0); Mean Corpuscular Hemoglobin 32.6 pg (27.0-31.0); Mean Corpuscular Volume 95.7 fL (78.0-98.0); Mean Platelet Volume 7.9 fL (7.4-10.4); Platelet Count 321 thou/uL (130-400); RBC Distribution Width 13.9 % (11.5-14.5); White Blood Cell (WBC) Count 12.9 thou/uL (4.8-10.8)
[2020-12-30 03:38] LABS: Bilirubin Negative (Negative); Blood, Urine Negative (Negative); Glucose, Urine (Dipstick) Negative (Negative); Ketone, Urine Negative (Negative); Leukocyte Negative (Negative); Nitrite Negative (Negative); Protein, Urine (Dipstick) Negative (Neg-Trace); Urobilinogen 0.2 mg/dL (Less than 2); pH, Urine 7.5 (5.0-9.0)
[2020-12-30 03:41] LABS: ALT (SGPT) 20 U/L (8-55); AST (SGOT) 36 U/L (5-34); Albumin 2.6 g/dL (3.5-5.0); Alkaline Phosphatase 60 U/L (40-110); Anion Gap 11 mmol/L (10-20); BUN (Urea Nitrogen) 7 mg/dL (7.0-18.7); Bilirubin, Direct 0.2 mg/dL (0.1-0.3); Bilirubin, Total 0.4 mg/dL (0.2-1.2); CK (CPK) 586 U/L (29-168); Calc. Creatinine Clearance 195 mL/min (70-130); Calcium 7.8 mg/dL (7.8-10.44); Carbon Dioxide 27 mmol/L (22-29); Chloride 110 mmol/L (98-107); Globulin 2.3 g/dL (2.4-3.5); Glucose 129 mg/dL (70-105); Lipase 67 U/L (8-78); Magnesium 2.1 mg/dL (1.6-2.6); PTT 28.5 sec (22.9-36.1); Phosphorus 2.6 mg/dL (2.3-4.7); Potassium 3.3 mmol/L (3.5-5.1); Protein, Total 4.9 g/dL (6.0-8.3); Prothrombin Time 13.9 sec (12.0-14.7); Sodium 145 mmol/L (136-145)
[2020-12-30 03:42] LABS: Bacteria/HPF None Seen HPF (None Seen); RBC/HPF None Seen HPF (0-3); Squamous Epithelial None Seen HPF (0-3); WBC/HPF 0-3 HPF (0-3)
[2020-12-30 03:43] LABS: Lactic Acid 1.3 mmol/L (0.5-2.2)
[2020-12-30 03:44] LABS: CKMB 1.9 ng/mL (0-6.6); Troponin I 0.052 ng/mL (< 0.028)
[2020-12-30 03:55] LABS: Analyzer IN Cardio ER; Base Excess (BEa) 7.3 mEq/L (-2.0 to +3.0); CO2 Tension 34.3 mmHg (35.0-45.0); Calcium, Ionized (arterial) 1.09 mmol/L (1.12-1.30); Carboxyhemoglobin (COHb) 0.2 gm% (0.0-3.0); Hemoglobin (Hb) 7.7 g/dL (12.0-16.0); O2 Tension (PaO2), arterial 417.9 mmHg (80.0-100.0); Potassium - ABG Lab 3.31 mmol/L (3.70-5.30)
[2020-12-30 03:59] LABS: Clarity Clear (Clear)
[2020-12-30 04:10] LABS: ALV-art Gradient 252.225 mmHg (0-20); Puncture Site Arterial Line; pH, Arterial 7.56 (7.35-7.45)
[2020-12-30] MEDS: Ampicillin/Sulbactam 3 GM in Sodium Chloride 0.9% 100 ML IVPB SCH ×4 (04:33→21:14)
[2020-12-30] MEDS: Acetaminophen 650 MG/20.3 ML UDCUP PO SCH ×4 (05:51→23:40)
[2020-12-30] MEDS: Metoclopramide HCl 10 MG/2 ML VIAL IVP SCH ×4 (05:52→23:41)
[2020-12-30] MEDS: Ascorbic Acid 500 mg Chewable Tablet PO SCH ×2 (08:04→20:02)
[2020-12-30] MEDS: Amantadine HCl 100 mg Capsule PO SCH (08:04)
[2020-12-30] MEDS: Saccharomyces boulardii 250 MG CAP PO SCH (08:05)
[2020-12-30] MEDS: Ferrous Sulfate 325 MG TAB PO SCH ×2 (08:05→20:02)
[2020-12-30] MEDS: Pantoprazole 40 MG VIAL IVP SCH ×2 (08:05→20:02)
[2020-12-30] MEDS: Polyethylene Glycol 3350 17 GM Packet PO SCH (08:21)
[2020-12-30] MEDS ORDERED: Potassium Phosphate 30 MMOL in Sodium Chloride 0.9% 250 ML 250 ML IVPB SCH (08:30)
[2020-12-30] MEDS ORDERED: Potassium Chloride 10 MEQ in Dextrose 5 %-0.45 % NaCl 1,000 ML IVPB SCH (09:00)
[2020-12-30] MEDS: levETIRAcetam in NS 500 MG in Premix Bag 1 BAG IVPB SCH ×2 (09:37→21:10)
[2020-12-30 09:54] LABS: #Eosinphils 0.1 thou/uL (0.0-0.7); #Lymphocytes 2.4 thou/uL (1.20-3.40); #Monocytes 0.9 thou/uL (0.11-0.59); #Neutrophils 10.4 thou/uL (1.40-6.50); %Basophils 0.3 % (0.0-1.0); %Eosinophils 0.9 % (0.0-10.0); %Lymphocytes 17.3 % (21.0-51.0); %Monocytes 6.6 % (0.0-10.0); %Neutrophils 74.9 % (42.0-75.0); Mean Corpuscular HGB CONC 32.5 g/dL (32.0-36.0); Mean Corpuscular Hemoglobin 31.5 pg (27.0-31.0); Mean Corpuscular Volume 97.2 fL (78.0-98.0); Mean Platelet Volume 7.8 fL (7.4-10.4); Platelet Count 362 thou/uL (130-400); RBC Distribution Width 13.9 % (11.5-14.5); Red Blood Cell (RBC) Count 2.23 mill/uL (4.20-5.40); White Blood Cell (WBC) Count 13.9 thou/uL (4.8-10.8)
[2020-12-30] MEDS: Levothyroxine Sodium 400 MCG, Admixture Fee 1 EACH in Sodium Chloride 0.9% 100 ML IVPB SCH (10:00)
[2020-12-30 10:03] LABS: INR-International Normal Ratio 1.1; PTT 28.5 sec (22.9-36.1); Prothrombin Time 14.7 sec (12.0-14.7)
[2020-12-30 10:12] LABS: Lactic Acid 1.1 mmol/L (0.5-2.2)
[2020-12-30 10:20] LABS: CKMB 1.5 ng/mL (0-6.6); Troponin I 0.046 ng/mL (< 0.028)
[2020-12-30 10:48] LABS: ALT (SGPT) 19 U/L (8-55); AST (SGOT) 35 U/L (5-34); Albumin 2.5 g/dL (3.5-5.0); Alkaline Phosphatase 58 U/L (40-110); Anion Gap 11 mmol/L (10-20); BUN (Urea Nitrogen) 8 mg/dL (7.0-18.7); Bilirubin, Direct 0.2 mg/dL (0.1-0.3); Bilirubin, Total 0.5 mg/dL (0.2-1.2); CK (CPK) 542 U/L (29-168); Calc. Creatinine Clearance 190 mL/min (70-130); Calcium 7.7 mg/dL (7.8-10.44); Carbon Dioxide 27 mmol/L (22-29); Chloride 110 mmol/L (98-107); Globulin 2.2 g/dL (2.4-3.5); Glucose 131 mg/dL (70-105); Lipase 75 U/L (8-78); Magnesium 2.1 mg/dL (1.6-2.6); Phosphorus 3.3 mg/dL (2.3-4.7); Potassium 3.2 mmol/L (3.5-5.1); Protein, Total 4.7 g/dL (6.0-8.3); Sodium 145 mmol/L (136-145)
[2020-12-30 12:23] LABS: Actual Bicarbonate (HCO3a) 26.9 mEq/L (22-28); Analyzer IN Cardio ER; Base Excess (BEa) 3.3 mEq/L (-2.0 to +3.0); CO2 Tension 36.8 mmHg (35.0-45.0); Calcium, Ionized (arterial) 1.08 mmol/L (1.12-1.30); Carboxyhemoglobin (COHb) 0.2 gm% (0.0-3.0); Hemoglobin (Hb) 8.8 g/dL (12.0-16.0); O2 Tension (PaO2), arterial 298.3 mmHg (80.0-100.0); Potassium - ABG Lab 3.67 mmol/L (3.70-5.30); Puncture Site Arterial Line; pH, Arterial 7.48 (7.35-7.45)
[2020-12-30 14:14] VITALS: BMI 29.0
[2020-12-30 15:11] LABS: #Eosinphils 0.1 thou/uL (0.0-0.7); #Neutrophils 12.7 thou/uL (1.40-6.50); %Basophils 0.1 % (0.0-1.0); %Eosinophils 0.7 % (0.0-10.0); %Lymphocytes 12.6 % (21.0-51.0); %Monocytes 6.1 % (0.0-10.0); %Neutrophils 80.4 % (42.0-75.0); Hemoglobin 7.5 g/dL (12.0-16.0); Mean Corpuscular HGB CONC 33.4 g/dL (32.0-36.0); Mean Corpuscular Hemoglobin 32.4 pg (27.0-31.0); Mean Corpuscular Volume 97.1 fL (78.0-98.0); Mean Platelet Volume 7.7 fL (7.4-10.4); Platelet Count 385 thou/uL (130-400); RBC Distribution Width 14.6 % (11.5-14.5); Red Blood Cell (RBC) Count 2.32 mill/uL (4.20-5.40); White Blood Cell (WBC) Count 15.8 thou/uL (4.8-10.8)
[2020-12-30 15:20] LABS: INR-International Normal Ratio 1.1; PTT 28.6 sec (22.9-36.1); Prothrombin Time 14.4 sec (12.0-14.7)
[2020-12-30 15:30] LABS: Lactic Acid 1.8 mmol/L (0.5-2.2)
[2020-12-30 15:41] LABS: CKMB 1.9 ng/mL (0-6.6); Troponin I 0.043 ng/mL (< 0.028)
[2020-12-30 15:46] LABS: ALT (SGPT) 22 U/L (8-55); AST (SGOT) 45 U/L (5-34); Albumin 2.8 g/dL (3.5-5.0); Alkaline Phosphatase 76 U/L (40-110); Anion Gap 11 mmol/L (10-20); BUN (Urea Nitrogen) 9 mg/dL (7.0-18.7); Bilirubin, Direct 0.2 mg/dL (0.1-0.3); Bilirubin, Total 0.5 mg/dL (0.2-1.2); CK (CPK) 597 U/L (29-168); Calc. Creatinine Clearance 178 mL/min (70-130); Calcium 7.9 mg/dL (7.8-10.44); Carbon Dioxide 29 mmol/L (22-29); Chloride 111 mmol/L (98-107); Globulin 2.3 g/dL (2.4-3.5); Glucose 110 mg/dL (70-105); Lipase 97 U/L (8-78); Magnesium 2.1 mg/dL (1.6-2.6); Potassium 3.6 mmol/L (3.5-5.1); Protein, Total 5.1 g/dL (6.0-8.3); Sodium 147 mmol/L (136-145)
[2020-12-30 16:20] LABS: Actual Bicarbonate (HCO3a) 28.6 mEq/L (22-28); Base Excess (BEa) 5.4 mEq/L (-2.0 to +3.0); CO2 Tension 35.4 mmHg (35.0-45.0); Calcium, Ionized (arterial) 1.08 mmol/L (1.12-1.30); Carboxyhemoglobin (COHb) 0.6 gm% (0.0-3.0); Hemoglobin (Hb) 7.3 g/dL (12.0-16.0); O2 Tension (PaO2), arterial 365.6 mmHg (80.0-100.0); Puncture Site Arterial Line; pH, Arterial 7.53 (7.35-7.45)
[2020-12-30] MEDS ORDERED: Fentanyl CADD 100 ML ONE (17:17)
[2020-12-30] MEDS: Fentanyl CADD 100 ML IV SCH (17:22)
[2020-12-30 17:33] LABS: Bilirubin Negative (Negative); Blood, Urine Negative (Negative); Glucose, Urine (Dipstick) Negative (Negative); Ketone, Urine Negative (Negative); Leukocyte Negative (Negative); Nitrite Negative (Negative); Protein, Urine (Dipstick) Negative (Neg-Trace); Urobilinogen 0.2 mg/dL (Less than 2); pH, Urine 7.5 (5.0-9.0)
[2020-12-30 17:37] LABS: Bacteria/HPF None Seen HPF (None Seen); Clarity Clear (Clear); RBC/HPF 0-3 HPF (0-3); Squamous Epithelial 0-3 HPF (0-3); WBC/HPF 0-3 HPF (0-3)
[2020-12-30] MEDS: D5 1/2 NS w/10 mEq KCl 1,000 ML/1,000 ML BAG IV SCH (18:51)
[2020-12-30 20:33] LABS: #Eosinphils 0.1 thou/uL (0.0-0.7); #Lymphocytes 1.5 thou/uL (1.20-3.40); #Monocytes 1.1 thou/uL (0.11-0.59); #Neutrophils 13.7 thou/uL (1.40-6.50); %Basophils 0.1 % (0.0-1.0); %Eosinophils 0.8 % (0.0-10.0); %Monocytes 6.9 % (0.0-10.0); %Neutrophils 83.3 % (42.0-75.0); Hemoglobin 7.4 g/dL (12.0-16.0); Mean Corpuscular HGB CONC 33.5 g/dL (32.0-36.0); Mean Corpuscular Hemoglobin 32.4 pg (27.0-31.0); Mean Corpuscular Volume 96.8 fL (78.0-98.0); Mean Platelet Volume 7.8 fL (7.4-10.4); Platelet Count 377 thou/uL (130-400); RBC Distribution Width 14.7 % (11.5-14.5); White Blood Cell (WBC) Count 16.5 thou/uL (4.8-10.8)
[2020-12-30 20:45] LABS: INR-International Normal Ratio 1.1; PTT 29.5 sec (22.9-36.1); Prothrombin Time 14.3 sec (12.0-14.7)
[2020-12-30 21:13] LABS: Actual Bicarbonate (HCO3a) 28.1 mEq/L (22-28); Base Excess (BEa) 5.2 mEq/L (-2.0 to +3.0); CO2 Tension 34.3 mmHg (35.0-45.0); Calcium, Ionized (arterial) 1.08 mmol/L (1.12-1.30); Carboxyhemoglobin (COHb) 1.1 gm% (0.0-3.0); Hemoglobin (Hb) 7.5 g/dL (12.0-16.0); O2 Tension (PaO2), arterial 381.5 mmHg (80.0-100.0); Potassium - ABG Lab 3.52 mmol/L (3.70-5.30); pH, Arterial 7.53 (7.35-7.45)
[2020-12-30 21:14] LABS: Puncture Site Arterial Line
[2020-12-30 21:15] LABS: ALV-art Gradient 288.625 mmHg (0-20)
[2020-12-30 21:19] LABS: Lactic Acid 2.3 mmol/L (0.5-2.2)
[2020-12-30 21:23] LABS: ALT (SGPT) 22 U/L (8-55); AST (SGOT) 44 U/L (5-34); Albumin 2.8 g/dL (3.5-5.0); Alkaline Phosphatase 74 U/L (40-110); Anion Gap 10 mmol/L (10-20); BUN (Urea Nitrogen) 8 mg/dL (7.0-18.7); Bilirubin, Direct 0.3 mg/dL (0.1-0.3); Bilirubin, Total 0.6 mg/dL (0.2-1.2); CK (CPK) 611 U/L (29-168); Calc. Creatinine Clearance 178 mL/min (70-130); Calcium 8.1 mg/dL (7.8-10.44); Carbon Dioxide 29 mmol/L (22-29); Chloride 112 mmol/L (98-107); Globulin 2.4 g/dL (2.4-3.5); Glucose 129 mg/dL (70-105); Potassium 4.2 mmol/L (3.5-5.1); Protein, Total 5.2 g/dL (6.0-8.3); Sodium 147 mmol/L (136-145)
[2020-12-30 21:29] LABS: Troponin I 0.052 ng/mL (< 0.028)
[2020-12-30 21:36] LABS: Phosphorus 3.7 mg/dL (2.3-4.7)
[2020-12-30 21:38] LABS: CKMB 2.3 ng/mL (0-6.6); Magnesium 2.1 mg/dL (1.6-2.6)
[2020-12-30 21:39] LABS: Lipase 94 U/L (8-78)
[2020-12-31 01:08] LABS: Base Excess (BEa) 4.8 mEq/L (-2.0 to +3.0); CO2 Tension 30.3 mmHg (35.0-45.0); Calcium, Ionized (arterial) 1.08 mmol/L (1.12-1.30); Hemoglobin (Hb) 7.8 g/dL (12.0-16.0); O2 Tension (PaO2), arterial 479.4 mmHg (80.0-100.0)
[2020-12-31 01:09] LABS: pH, Arterial 7.57 (7.35-7.45)
[2020-12-31 01:10] LABS: Puncture Site Arterial Line
[2020-12-31 01:12] LABS: ALV-art Gradient 195.725 mmHg (0-20)
[2020-12-31] MEDS: Hydrocortisone Sod Succ/PF 100 mg/2 ml Vial IVP SCH ×2 (01:48→09:27)
[2020-12-31] MEDS: Lorazepam 2 MG/ML VIAL SLOW IVP PRN ×5 (02:41→15:53)
[2020-12-31] MEDS: Ampicillin/Sulbactam 3 GM in Sodium Chloride 0.9% 100 ML IVPB SCH (03:27)
[2020-12-31 03:55] LABS: Bacteria/HPF None Seen HPF (None Seen); Bilirubin Negative (Negative); Blood, Urine Negative (Negative); Clarity Clear (Clear); Glucose, Urine (Dipstick) Negative (Negative); Ketone, Urine Negative (Negative); Leukocyte Negative (Negative); Nitrite Negative (Negative); Protein, Urine (Dipstick) Negative (Neg-Trace); RBC/HPF None Seen HPF (0-3); Squamous Epithelial 0-3 HPF (0-3); WBC/HPF 0-3 HPF (0-3); pH, Urine 7.5 (5.0-9.0)
[2020-12-31 03:58] LABS: #Eosinphils 0.1 thou/uL (0.0-0.7); #Monocytes 0.9 thou/uL (0.11-0.59); #Neutrophils 9.8 thou/uL (1.40-6.50); %Basophils 0.1 % (0.0-1.0); %Eosinophils 0.6 % (0.0-10.0); %Lymphocytes 15.5 % (21.0-51.0); %Monocytes 6.6 % (0.0-10.0); %Neutrophils 77.2 % (42.0-75.0); Hemoglobin 6.5 g/dL (12.0-16.0); Mean Corpuscular HGB CONC 33.3 g/dL (32.0-36.0); Mean Corpuscular Hemoglobin 32.6 pg (27.0-31.0); Mean Corpuscular Volume 97.8 fL (78.0-98.0); Mean Platelet Volume 7.9 fL (7.4-10.4); Platelet Count 355 thou/uL (130-400); RBC Distribution Width 15.7 % (11.5-14.5); White Blood Cell (WBC) Count 12.7 thou/uL (4.8-10.8)
[2020-12-31 04:04] LABS: ALT (SGPT) 21 U/L (8-55); AST (SGOT) 43 U/L (5-34); Albumin 2.6 g/dL (3.5-5.0); Alkaline Phosphatase 74 U/L (40-110); Anion Gap 10 mmol/L (10-20); BUN (Urea Nitrogen) 7 mg/dL (7.0-18.7); Bilirubin, Direct 0.2 mg/dL (0.1-0.3); Bilirubin, Total 0.4 mg/dL (0.2-1.2); CK (CPK) 540 U/L (29-168); Calc. Creatinine Clearance 183 mL/min (70-130); Calcium 7.6 mg/dL (7.8-10.44); Carbon Dioxide 27 mmol/L (22-29); Chloride 113 mmol/L (98-107); Globulin 2.3 g/dL (2.4-3.5); Glucose 109 mg/dL (70-105); Lipase 88 U/L (8-78); Magnesium 2.1 mg/dL (1.6-2.6); Phosphorus 3.5 mg/dL (2.3-4.7); Potassium 3.4 mmol/L (3.5-5.1); Protein, Total 4.9 g/dL (6.0-8.3); Sodium 147 mmol/L (136-145)
[2020-12-31 04:07] LABS: CKMB 1.3 ng/mL (0-6.6); Troponin I 0.035 ng/mL (< 0.028)
[2020-12-31 04:12] LABS: INR-International Normal Ratio 1.1; PTT 31.2 sec (22.9-36.1); Prothrombin Time 14.5 sec (12.0-14.7)
[2020-12-31] MEDS: Acetaminophen 650 MG/20.3 ML UDCUP PO SCH (05:48)
[2020-12-31] MEDS: Metoclopramide HCl 10 MG/2 ML VIAL IVP SCH (05:48)
[2020-12-31] MEDS ORDERED: Acetylcysteine 20% 200 MG/ML 30 ML VIAL PO SCH (06:00)
[2020-12-31] MEDS ORDERED: Piperacillin/Tazobactam 3.375 GM in Sodium Chloride 0.9% 100 ML IVPB SCH (06:00)
[2020-12-31] MEDS ORDERED: VANCOMYCIN 1.25 GM/250 ML BAG 1.25 GM in Premix Bag 1 BAG IVPB SCH (06:30)
[2020-12-31] MEDS ORDERED: Azithromycin 500 MG in Sodium Chloride 0.9% 250 ML 250 ML IVPB SCH (06:30)
[2020-12-31] MEDS: D5 1/2 NS w/10 mEq KCl 1,000 ML/1,000 ML BAG IV SCH (06:34)
[2020-12-31 06:38] LABS: Actual Bicarbonate (HCO3a) 26.3 mEq/L (22-28); Base Excess (BEa) 4.2 mEq/L (-2.0 to +3.0); Calcium, Ionized (arterial) 1.08 mmol/L (1.12-1.30); Carboxyhemoglobin (COHb) 0.1 gm% (0.0-3.0); Hemoglobin (Hb) 7.2 g/dL (12.0-16.0); Potassium - ABG Lab 3.41 mmol/L (3.70-5.30)
[2020-12-31 07:09] LABS: Puncture Site Arterial Line; pH, Arterial 7.58 (7.35-7.45)
[2020-12-31 09:09] VITALS: TEMP 99.6
[2020-12-31 09:22] LABS: #Eosinphils 0.1 thou/uL (0.0-0.7); #Lymphocytes 2.8 thou/uL (1.20-3.40); #Monocytes 1.2 thou/uL (0.11-0.59); #Neutrophils 11.2 thou/uL (1.40-6.50); %Basophils 0.2 % (0.0-1.0); %Eosinophils 0.9 % (0.0-10.0); %Lymphocytes 18.3 % (21.0-51.0); %Monocytes 7.8 % (0.0-10.0); %Neutrophils 72.7 % (42.0-75.0); Hemoglobin 7.1 g/dL (12.0-16.0); Mean Corpuscular HGB CONC 32.6 g/dL (32.0-36.0); Mean Corpuscular Hemoglobin 31.7 pg (27.0-31.0); Mean Corpuscular Volume 97.3 fL (78.0-98.0); Mean Platelet Volume 8.1 fL (7.4-10.4); Platelet Count 352 thou/uL (130-400); RBC Distribution Width 15.3 % (11.5-14.5); Red Blood Cell (RBC) Count 2.24 mill/uL (4.20-5.40); White Blood Cell (WBC) Count 15.4 thou/uL (4.8-10.8)
[2020-12-31 09:27] LABS: Lactic Acid 1.2 mmol/L (0.5-2.2)
[2020-12-31] MEDS: Amantadine HCl 100 mg Capsule PO SCH (09:27)
[2020-12-31] MEDS: Pantoprazole 40 MG VIAL IVP SCH (09:27)
[2020-12-31] MEDS: Ascorbic Acid 500 mg Chewable Tablet PO SCH (09:28)
[2020-12-31] MEDS: Polyethylene Glycol 3350 17 GM Packet PO SCH (09:28)
[2020-12-31] MEDS: Ferrous Sulfate 325 MG TAB PO SCH (09:28)
[2020-12-31] MEDS: Saccharomyces boulardii 250 MG CAP PO SCH (09:28)
[2020-12-31 09:31] LABS: INR-International Normal Ratio 1.2; PTT 27.7 sec (22.9-36.1)
[2020-12-31 09:33] LABS: ALT (SGPT) 24 U/L (8-55); AST (SGOT) 50 U/L (5-34); Albumin 2.8 g/dL (3.5-5.0); Alkaline Phosphatase 81 U/L (40-110); Anion Gap 10 mmol/L (10-20); BUN (Urea Nitrogen) 8 mg/dL (7.0-18.7); Bilirubin, Direct 0.3 mg/dL (0.1-0.3); Bilirubin, Total 0.6 mg/dL (0.2-1.2); CK (CPK) 544 U/L (29-168); Calc. Creatinine Clearance 177 mL/min (70-130); Calcium 7.9 mg/dL (7.8-10.44); Carbon Dioxide 27 mmol/L (22-29); Chloride 113 mmol/L (98-107); Globulin 2.1 g/dL (2.4-3.5); Glucose 103 mg/dL (70-105); Lipase 152 U/L (8-78); Magnesium 2.3 mg/dL (1.6-2.6); Phosphorus 3.9 mg/dL (2.3-4.7); Protein, Total 4.9 g/dL (6.0-8.3); Sodium 146 mmol/L (136-145)
[2020-12-31 09:35] LABS: CKMB 1.3 ng/mL (0-6.6); Troponin I 0.039 ng/mL (< 0.028)
[2020-12-31] MEDS: levETIRAcetam in NS 500 MG in Premix Bag 1 BAG IVPB SCH (09:58)
[2020-12-31] MEDS: Levothyroxine Sodium 400 MCG, Admixture Fee 1 EACH in Sodium Chloride 0.9% 100 ML IVPB SCH (10:00)
[2020-12-31] MEDS ORDERED: Heparin 10,000 UNITS/ 10 ML VIAL SLOW IVP SCH (10:00)
[2020-12-31 10:25] VITALS: BP 99/74
[2020-12-31] MEDS ORDERED: Heparin 10,000 UNITS/ 10 ML VIAL ONE (10:55)
[2020-12-31] MEDS ORDERED: Morphine 10 MG/ML VIAL SLOW IVP PRN (11:05)
[2020-12-31] MEDS: Morphine 10 MG/ML VIAL SLOW IVP PRN ×4 (13:51→15:53)
[2020-12-31] MEDS ORDERED: Fentanyl 250 MCG/5 ML VIAL ONE (15:37)
[2020-12-31] MEDS ORDERED: Sodium Chloride 0.9% 0 ML ONE (15:45)
== END 2020-12-31 16:12 | disposition expired | DRG 955 ==
LOC: EDBD 15:34 → ERS 15:34 → CCU 16:22 → SURG A 12-31 13:48
PROVIDERS: ADMIT Surgery; ATTEND Surgery
PROC: 4A103BD Monitoring of Intracranial Pressure, Percutaneous Approach (ICD-10-PCS; principal; 2020-12-21)
PROC: 5A1955Z Respiratory Ventilation, Greater than 96 Consecutive Hours (ICD-10-PCS; 2020-12-21)
PROC: 3E033XZ Introduction of Vasopressor into Peripheral Vein, Percutaneous Approach (ICD-10-PCS; 2020-12-21)
PROC: 03HY32Z Insertion of Monitoring Device into Upper Artery, Percutaneous Approach (ICD-10-PCS; 2020-12-21)
PROC: 00H032Z Insertion of Monitoring Device into Brain, Percutaneous Approach (ICD-10-PCS; 2020-12-21)
PROC: 02HV33Z Insertion of Infusion Device into Superior Vena Cava, Percutaneous Approach (ICD-10-PCS; 2020-12-22)
PROC: 30233N1 Transfusion of Nonautologous Red Blood Cells into Peripheral Vein, Percutaneous Approach (ICD-10-PCS; 2020-12-23)
PROC: 0W9930Z Drainage of Right Pleural Cavity with Drainage Device, Percutaneous Approach (ICD-10-PCS; 2020-12-23)
PROC: 0DH67UZ Insertion of Feeding Device into Stomach, Via Natural or Artificial Opening (ICD-10-PCS; 2020-12-24)
PROC: 0BC18ZZ Extirpation of Matter from Trachea, Via Natural or Artificial Opening Endoscopic (ICD-10-PCS; 2020-12-29)
PROC: 0BC68ZZ Extirpation of Matter from Right Lower Lobe Bronchus, Via Natural or Artificial Opening Endoscopic (ICD-10-PCS; 2020-12-29)
PROC: 0BC78ZZ Extirpation of Matter from Left Main Bronchus, Via Natural or Artificial Opening Endoscopic (ICD-10-PCS; 2020-12-29)
DX: S27.2XXA Traumatic hemopneumothorax, initial encounter; J96.00 Acute respiratory failure, unspecified whether with hypoxia or hypercapnia; I77.71 Dissection of carotid artery; I63.513 Cerebral infarction due to unspecified occlusion or stenosis of bilateral middle cerebral arteries; J69.0 Pneumonitis due to inhalation of food and vomit; S22.41XA Multiple fractures of ribs, right side, initial encounter for closed fracture; S32.049A Unspecified fracture of fourth lumbar vertebra, initial encounter for closed fracture; E87.3 Alkalosis; D62 Acute posthemorrhagic anemia; E87.2 Acidosis; E27.40 Unspecified adrenocortical insufficiency; E87.0 Hyperosmolality and hypernatremia; Z66 Do not resuscitate; Z20.822 Contact with and (suspected) exposure to COVID-19; Z23 Encounter for immunization; S02.19XA Other fracture of base of skull, initial encounter for closed fracture; S02.11HA Other fracture of occiput, left side, initial encounter for closed fracture; G93.89 Other specified disorders of brain; F90.9 Attention-deficit hyperactivity disorder, unspecified type; L73.2 Hidradenitis suppurativa; F31.9 Bipolar disorder, unspecified; I10 Essential (primary) hypertension; E83.51 Hypocalcemia; E83.42 Hypomagnesemia; I95.9 Hypotension, unspecified; E87.70 Fluid overload, unspecified; R00.0 Tachycardia, unspecified; J40 Bronchitis, not specified as acute or chronic; E87.6 Hypokalemia; E83.39 Other disorders of phosphorus metabolism; G40.409 Other generalized epilepsy and epileptic syndromes, not intractable, without status epilepticus; I46.8 Cardiac arrest due to other underlying condition; R40.2311 Coma scale, best motor response, none, in the field [EMT or ambulance]; R40.2111 Coma scale, eyes open, never, in the field [EMT or ambulance]; R40.2211 Coma scale, best verbal response, none, in the field [EMT or ambulance]; Z78.1 Physical restraint status; V44.5XXA Car driver injured in collision with heavy transport vehicle or bus in traffic accident, initial encounter; Y92.410 Unspecified street and highway as the place of occurrence of the external cause
CPT/HCPCS: 0240U; 31624; 36415; 36416; 36430; 36600; 51701; 70450; 70486; 70496; 70498; 71045; 71250; 71260; 72125; 72170; 74177; 80048; 80053; 80306; 81003; 81015; 81025; 82150; 82248; 82533; 82550; 82553; 82805; 82977; 83036; 83605; 83690; 83735; 83880; 83930; 84100; 84484; 85025; 85384; 85610; 85730; 86850; 86900; 86901; 87070; 87077; 87186; 87205; 90471; 90715; 93005; 93010; 93306; 93970; 94002; 94003; 94640; 96365; 96366; 96368; 96375; 96376; 99292; C9113; G0390; J0132; J0295; J0456; J0690; J1642; J1644; J1720; J1815; J1940; J1953; J2001; J2060; J2150; J2270; J2543; J2704; J2765; J3010; J3370; J3475; J3480; J3490; J7042; J7050; J7620; J7799; P9016; Q9967; S0028